=== PATIENT | male | born 1960 | race Caucasian/White ===

== ENCOUNTER 2018-03-04 01:45 | Observation (INO) | payer OTHER ==
[~2018-03-04] VITALS: Ht 179.1 cm; Wt 120.2 kg
[~2018-03-04 01:45] MED LIST: ADIPEX-P37.5 MG PO; ALPRAZOLAM2 M2 PO; CLONIDINE HCL0.2 M1 PO; FISH OIL 1,0001 EAC1 PO; GLUCOPHAGE1000 M1 PO; LIPITOR10 M1 PO; MULTIVITAMINS1 EAC9 PO; NIACIN500 M6 PO; OXYCODONE HCL10 M2 PO; TOPAMAX100 M1 PO; VENLAFAXINE HC150 MG PO; VISINE15 ML OU; VITAMIN B-12250 MCG PO
[2018-03-04 14:00] VITALS: BP 118/70
[2018-03-04 16:00] VITALS: BP 106/60
--- NOTE | 2018-03-04 16:30 | Operative Report ---
Operative/Inv Procedure Report Surgery Date: 03/04/18 Name of Procedure: Robotic repair of recurrent incarcerated ventral hernia with 8 x [address] IPOM mesh and explantation of prior hernia mesh Pre-Operative Diagnosis: Current incarcerated ventral hernia, morbid obesity Post-Operative Diagnosis: Same Estimated Blood Loss: none Surgeon/It Technical Support Specialist: Moris MESA,Wes Mullins PA-C Anesthesia: general endotracheal tube IV Fluids: 1 L crystalloid Implants: VentrioST 8 x 12 cm mesh Drains: None Specimens: None Complications: None Condition: Excellent to PACU extubated Operative Indication: Wayne is 57-year-old gentleman morbidly obese who had a prior mesh repair of umbilical hernia repair 4 years ago [facility] and who presented with a supraumbilical bulge and discomfort. CT showed a small hernia defects and a large subcutaneous pocket couldn't containing fat presents for robotic repair. Mesh explantation is a possibility. Operative/Procedure Note Note: Patient is taken to the operating room placed on the operating table in supine position. Owing an awake timeout he underwent uneventful induction of general endotracheal anesthesia. Bilateral tap blocks were placed. Abdomen was clipped widely of hair then widely with DuraPrep and draped in usual sterile fashion including Ioban. His right arm was on the arm board alongside the body in the left arm was extended out. He had a bath blanket rolled up behind his left flank and the table was flexed. He received IV clindamycin prior to skin incision. He received subcutaneous heparin. Last site was infiltrated in the left subcostal area were transverse incision was made and carried down to the external oblique fascia. The external oblique was split along its fibers as was the internal and transversus abdominis muscles exposing the transversalis fascia. Was then opened carefully to gain entry into the peritoneal cavity finger sweep revealed there were no adhesions. The haley 12 mm aerocele port was placed and pneumoperitoneum achieved area 8mm da Samanta 30 scope was inserted and we could see adhesions in the central area around the hernia. These were omental adhesions only as predicted by the CT scan. We placed two 8 mm working ports laterally on the left side the lowest at the level of the ASIS and the other custodial between both after infiltrating local anesthetic. The [employer] robot was then docked and a straight a bipolar placed in the left hand and a monopolar west in the right. In taking down adhesions in the area of the hernia freeing the omentum from the margin of the defect and pulling out a large volume of omentum from the subcutaneous hernia sac space. This was reduced appreciate a large plug of mesh just inferior to this defect that was adherent to the abdominal wall and covered with other omentum. I freed the omentum from the plug then freed the plug from the anterior abdominal wall leaving aside for later removal area was sutured with multiple Prolene sutures so these were removed. There was a small defect the edge of where the prior hernia mesh was situated. Was difficult to tell if this was a balled up flat sheet of mesh or plug. I closed the midline defects 0V LOC permanent suture starting a centimeters above and completing 3 cm inferior to the defects. Now an 8 x [address] mesh was placed into the abdomen after placing mammary clips around the margin for later CT identification. Mesh was secured circumferentially with 20 absorbable V lock suture in an IPOM fashion centered over the now closed defects. I had taken down peritoneum from superiorly and inferiorly leaving some flaps but despite the patient's size there was very little of a preperitoneal fat stripe and none in the area of the hernia's. I I did clear both edges right and left of the defect areas of any peritoneum. I placed 2-0 Tycron permanent sutures at the 4 Compass points interrupted. I then pulled the residual flaps of peritoneum over each end of the mesh during it with 2-0 Vicryl suture. The explanted mesh was now placed in an extraction bag along with some of the peritoneum I had taken down and removed from the Slade port. Pneumo was reestablished the camera reinserted and we removed the 2 8 mm ports under direct vision then removed the Slade port closing in layers with 0 Vicryl again he would the transversus with the transversalis fascia then the internal oblique and finally the external oblique. Skin was closed with darrell. 4 x 4's and OpSite were placed followed by an abdominal binder. Findings: Balled up mesh plug under umbilical repair with small recurrence there and adjacent 3 x 3 cm defect large-volume omentum into the subcutaneous space. A patient's morbid obesity, need for mesh explantation and the extensive lysis of adhesions and freeing of the omentum added complexity and two hours of extra time to the operation and would qualify for 22 modifier Discharge Disposition: Same Day Admissions
--- NOTE | 2018-03-04 17:14 | PN- General Surgery ---
Subjective Subjective: Patient reports postop pain, improved with oral oxycodone and tylenol. Passing flatus. Denies voiding or ambulating in the schaefer. Using incentive spirometry. Offers no other complaints. Objective Vital Signs and I&Os Vital Signs Date Time Temp Pulse Resp B/P B/P Pulse O2 O2 Flow FiO2 Mean Ox Delivery Rate 03/04 1629 Room Air 03/04 1600 97.8 77 18 106/60 96 Room Air 03/04 1400 98.1 71 18 118/70 95 Room Air Intake & Output 03/04 1600 03/04 0800 03/04 0000 03/03 1600 03/03 0800 03/03 0000 Intake Total 320 Output Total Balance 320 Intake, Oral 320 Patient 265 lb Weight Physical Exam: Gen - resting comfortably nad Cardiac - s1s2, rrr Lungs - ctab Abd - soft, obese, 3 dressings c/d/i, + bs, appropriately tender, no rebound or guarding noted Ext - no edema or calf tenderness Current Medications: Current Medications Sig/Aidan Start time Last Medication Dose Route Stop Time Status Admin Acetaminophen 1,000 MG TID 03/04 1400 AC 03/04 PO 1557 Acetaminophen 1,000 MG .STK-MED ONE 03/04 06 DC IV 03/04 0656 Alprazolam 2 MG BID PRN 03/04 1230 AC PO 03/11 1229 Atorvastatin Calcium 10 MG 1700 03/04 1700 AC 03/04 PO 1705 Clonidine 0.2 MG 0800 03/05 0800 AC PO Dextrose/Sodium 1,000 ML .[id number] 03/04 1345 AC 03/04 Chloride IV 1446 Diazepam 2 MG TID PRN 03/04 1230 AC PO Fentanyl Citrate 250 MCG .STK-MED ONE 03/04 06 DC IM 03/04 0656 Heparin Sodium 5,000 UNIT Q8 03/04 2200 AC (Porcine) SC Hydromorphone HCl 2 MG .STK-MED ONE 03/04 0654 DC IM 03/04 0655 Insulin Aspart 0 TIDAC 03/04 1700 AC 03/04 SC 1705 Ketorolac 30 MG Q6-PRN PRN 03/04 1345 AC Tromethamine IV Midazolam HCl 2 MG .STK-MED ONE 03/04 06 DC IM 03/04 0656 Ondansetron HCl 4 MG Q6P PRN 03/04 1345 AC IV Oxycodone HCl 5 MG Q4-6 PRN PRN 03/04 1345 AC PO Oxycodone HCl 10 MG Q4-6 PRN PRN 03/04 1345 AC 03/04 PO 1444 Tetrahydrozoline HCl 1 GTT DAILY NEEDED PRN 03/04 134 AC OPH Topiramate 100 MG BID 03/04 2100 AC PO Venlafaxine HCl 150 MG 0800 03/05 0800 AC PO Results Last 48 Hours of Labs: Laboratory Tests 03/04 632 Chemistry Sodium (137 - 145 mmol/L) 140 Potassium (3.5 - 5.1 mmol/L) 3.9 Chloride (98 - 107 mmol/L) 102 Carbon Dioxide (22 - 30 mmol/L) 28 Anion Gap (5 - 16) 10 BUN (9 - 20 mg/dL) 18 Creatinine (0.7 - 1.2 mg/dL) 0.9 Estimated GFR (>60 ml/min) > 60 BUN/Creatinine Ratio (7 - 25 %) 20.0 Glucose (65 - 99 mg/dL) 106 H Calcium (8.4 - 10.2 mg/dL) 9.6 Assessment/Plan Assessment/Plan 57 M s/p robotic recurrent incarcerated ventral hernia repair w/ mesh and explantation of prior hernia mesh, recovering well postoperatively Advance to fulls in am Cont IVF Pain prn - oxy, tylenol, valium, toradol Home meds ordered ISS on board DVT pps - alps, hsq, ambulate Monitor postop void Encourage IS Cont observation, anticipate d/c tomorrow Core Measures Venous Thromboembolism VTE Risk Factors Surgery No Mechanical VTE Prophylaxis d/t N/A MechProphylax Ordered No VTE Pharm Prophylaxis d/t NA PharmProphylax ordered
[2018-03-04 18:00] VITALS: BP 104/60
[2018-03-04 20:00] VITALS: BP 110/60
[2018-03-05 05:34] VITALS: BP 134/60
--- NOTE | 2018-03-05 07:52 | PN- General Surgery ---
Subjective Subjective: Patient reports postop pain, which is currently controlled. Tolerating clears without nausea or vomiting. Voiding spontanously and ambulating without difficulty. Passing flatus. Offers no other complaints. Objective Vital Signs and I&Os Vital Signs Date Time Temp Pulse Resp B/P B/P Pulse O2 O2 Flow FiO2 Mean Ox Delivery Rate 03/05 0534 97.9 81 16 134/60 97 Room Air 03/05 0000 Room Air 03/04 2000 97.9 87 18 110/60 94 Room Air 03/04 1800 98.3 79 18 104/60 94 Room Air 03/04 1629 Room Air 03/04 1600 97.8 77 18 106/60 96 Room Air 03/04 1400 98.1 71 18 118/70 95 Room Air Intake & Output 03/05 0000 03/04 1600 03/04 0803/04 0000 03/03 1600 Intake Total 840 1110 320 Output Total 440 Balance 840 670 320 Intake, IV 600 225 Intake, Oral 240 885 320 Number 0 0 Bowel Movements Output, Urine 440 Patient 265 lb Weight Physical Exam: Gen - resting comfortably nad Cardiac - s1s2, rrr Lungs - ctab Abd - soft, obese, 3 dressings c/d/i, + bs, appropriately tender, no rebound or guarding noted Ext - no edema or calf tenderness Current Medications: Current Medications Sig/Aidan Start time Last Medication Dose Route Stop Time Status Admin Acetaminophen 1,000 MG TID 03/04 1400 AC 03/04 PO 2117 Alprazolam 2 MG BID PRN 03/04 1230 AC PO 03/11 1229 Atorvastatin Calcium 10 MG 1700 03/04 1700 AC 03/04 PO 1705 Clonidine 0.2 MG QPM 03/05 2100 AC PO Clonidine 0.2 MG 0800 03/05 0800 DC PO Dextrose/Sodium 1,000 ML .[id number] 03/04 1345 AC 03/05 Chloride IV 0150 Diazepam 2 MG TID PRN 03/04 1230 AC PO Docusate Sodium 100 MG DAILY NEEDED PRN 03/05 0600 AC PO Heparin Sodium 5,000 UNIT Q8 03/04 2200 AC 03/05 (Porcine) SC 0542 Hydromorphone HCl 2 MG .STK-MED ONE 03/04 1307 DC IM 03/04 1308 Hydromorphone HCl 2 MG .STK-MED ONE 03/04 1254 DC IM 03/04 1255 Hydromorphone HCl 2 MG .STK-MED ONE 03/04 1235 DC IM 03/04 1236 Hydromorphone HCl 2 MG .STK-MED ONE 03/04 1224 DC IM 03/04 1225 Insulin Aspart 0 TIDAC 03/04 1700 AC 03/04 SC 1705 Ketorolac 30 MG Q6-PRN PRN 03/04 1345 AC 03/05 Tromethamine IV 0120 Ondansetron HCl 4 MG Q6P PRN 03/04 1345 AC IV Oxycodone HCl 5 MG Q4-6 PRN PRN 03/04 1345 AC PO Oxycodone HCl 10 MG Q4-6 PRN PRN 03/04 1345 AC 03/05 PO 0542 Polyethylene Glycol 17 GM DAILY 03/05 0900 AC PO Senna 187 MG AT BEDTIME 03/05 2100 AC PO Tetrahydrozoline HCl 1 GTT DAILY NEEDED PRN 03/04 134 AC OPH Topiramate 100 MG BID 03/04 2100 AC 03/04 PO 2117 Venlafaxine HCl 150 MG QPM 03/05 2100 AC PO Venlafaxine HCl 150 MG 0800 03/05 0800 DC PO Results Last 48 Hours of Labs: Laboratory Tests 03/04 0632 Chemistry Sodium (137 - 145 mmol/L) 140 Potassium (3.5 - 5.1 mmol/L) 3.9 Chloride (98 - 107 mmol/L) 102 Carbon Dioxide (22 - 30 mmol/L) 28 Anion Gap (5 - 16) 10 BUN (9 - 20 mg/dL) 18 Creatinine (0.7 - 1.2 mg/dL) 0.9 Estimated GFR (>60 ml/min) > 60 BUN/Creatinine Ratio (7 - 25 %) 20.0 Glucose (65 - 99 mg/dL) 106 H Calcium (8.4 - 10.2 mg/dL) 9.6 Assessment/Plan Assessment/Plan 57 M POD 1 s/p robotic recurrent incarcerated ventral hernia repair w/ mesh and explantation of prior hernia mesh, recovering well postoperatively Advance to ada D/c IVF Pain regimen prn Home meds on board ISS on board DVT pps - alps, hsq, ambulate Encourage IS Cont observation, anticipate d/c today D/w Dr. Subramanian Core Measures Venous Thromboembolism VTE Risk Factors Surgery No Mechanical VTE Prophylaxis d/t N/A MechProphylax Ordered No VTE Pharm Prophylaxis d/t NA PharmProphylax ordered
[2018-03-05] MEDS ORDERED: ROXICODONE5 M1 PO (08:14)
[2018-03-05] MEDS ORDERED: VALIUM5 M2 PO (08:14)
[2018-03-05 08:58] LABS: ABSOLUTE BASOPHIL COUNT 0 /CUMM (0.0-0.2); ABSOLUTE EOSINOPHIL COUNT 0.2 /CUMM (0.0-0.7); ABSOLUTE GRANULOCYTE CT 8.6 /CUMM (1.4-6.5); ABSOLUTE MONOCYTE COUNT 0.8 /CUMM (0.10-0.60); BASOPHIL % 0.3 % (0.0-2.0); EOSINOPHIL % 1.6 % (0-5); GRANULOCYTE % 74.2 % (42.2-75.2); HEMATOCRIT 37.8 % (42-52); MEAN CORPUSCULAR HGB 30.2 PG (27.0-31.0); MEAN PLATELET VOLUME 7.7 FL (7.4-10.4); PLATELET COUNT 220 /CUMM (130-400); RBC DISTRIBUTION WIDTH 13.8 % (11.5-14.5); RED BLOOD CELL CT 4.25 /CUMM (4.70-6.10); WHITE BLOOD CELL COUNT 11.6 /CUMM (4.8-10.8)
--- NOTE | 2018-03-05 14:35 | Surg Short-stay <48hrs Dis Sum ---
Visit Information Visit Dates Admission Date: 03/04/18 Discharge Date: 03/05/18 Surgical Short Stay DC Summary Admission Diagnosis: Recurrent incarcerated ventral hernia, morbid obesity Final Diagnosis: Same s/p robotic repair of recurrent incarcerated ventral hernia with mesh and explantation of prior hernia mesh Procedure(s): Robotic repair of recurrent incarcerated ventral hernia with 8 x [address] IPOM mesh and explantation of prior hernia mesh on 03/05/18 Summary/Significant Findings: Patient presented electively for a robotic repair of recurrent incarcerated ventral hernia mesh and explantation of prior hernia mesh with Dr. Subramanian. The procedure was tolerated well and patient was transferred to a general surgical floor. Diet was advanced and tolerated. At the time of hospital discharge, vital signs were stable, patient had return of bowel function and pain was controlled with the use of oral pain medications. Condition at Discharge: Stable Discharge Disposition: home or self care Discharge instructions provided to patient/family: Yes Post discharge follow-up plan: 10-14 days for postop check/staple removal
--- NOTE | 2018-03-05 14:36 | Patient Discharge Instructions ---
Discharge Instructions General Discharge Information You were seen/treated for: ventral hernia You had these procedures: Davinc[employer] Robot Assisted ventral herina repair with mesh Watch for these problems: Increasing pain despite the use of pain medications Increasing redness, warmth, swelling of abdomen Drainage from incision Inability to urinate or move bowels Fever greater than 101.5 Call Surgeon to remove: Talha Do not soak the wound: Yes No bath, but you may shower: Yes Other wound care: Keep wound clean and dry Special Instructions: Follow up with Dr. Subramanian in two weeks for staple removal Diet Continue normal diet: Yes Recommended Diet: Diabetic Activity Full Activity/No Limits: No Activity Self Limited: Yes Pounds, do NOT lift more than: 5 Acute Coronary Syndrome Inclusion Criteria At DC or during hospital stay patient has or had the following: ACS DIAGNOSIS No Discharge Core Measures Meds if any: Prescribed or Continued at Discharge Meds if any: NOT Prescribed or Continued at Discharge Congestive Heart Failure Inclusion Criteria At DC or during hospital stay patient has or had the following: CHF DIAGNOSIS No Discharge Core Measures Meds if any: Prescribed or Continued at Discharge Meds if any: NOT Prescribed or Continued at Discharge Cerebrovascular accident Inclusion Criteria At DC or during hospital stay patient has or had the following: CVA/TIA Diagnosis No Discharge Core Measures Meds if any: Prescribed or Continued at Discharge Meds if any: NOT Prescribed or Continued at Discharge Venous thromboembolism Inclusion Criteria VTE Diagnosis No VTE Type NONE VTE Confirmed by (Test) NONE Discharge Core Measures - Per Current guidelines, there needs to be overlap - treatment for the first 5 days of Warfarin therapy. - If discharged on Warfarin prior to 5 days of - overlap therapy, the patient will need to be - assessed for post discharge needs including - *Post discharge parental anticoagulation - *Warfarin and/or parental anticoagulation education - *Follow up date to check INR post discharge At least 5 days overlap therapy as Inpatient No Meds if any: Prescribed or Continued at Discharge Note: Overlap Therapy is Warfarin and Anticoagulant Meds if any: NOT Prescribed or Continued at Discharge
[2018-03-05 14:48] VITALS: BP 130/70
== END 2018-03-05 16:35 ==
LOC: STS 01:45 → PACUH 12:09 → ENRESERV 12:56 → ENTRNSPT 13:14 → EDTRNSPT 13:15 → EDTRNSPTSTS 13:17 → 2NA 13:29 → CMPTRNSPT 13:37 → ENPENDDIS 03-05 14:42 → ENTRNSPT 03-05 16:19 → EDTRNSPT 03-05 16:22 → EDTRNSPTSTS 03-05 16:22 → CMPTRNSPT 03-05 16:33 → 2NA 03-05 16:35
PROVIDERS: Physician Assistant Surgical
DX: K43.0 Incisional hernia with obstruction, without gangrene (principal); G89.18 Other acute postprocedural pain; E66.01 Morbid (severe) obesity due to excess calories; E11.9 Type 2 diabetes mellitus without complications; Z79.84 Long term (current) use of oral hypoglycemic drugs; G47.30 Sleep apnea, unspecified; E78.2 Mixed hyperlipidemia; F41.8 Other specified anxiety disorders
CPT/HCPCS: 1255; 36415; 36592; 82436; 88304; 96372; 96374; C1781; C9290; C9399; G0378; J0131; J1644; J1885; J2405; J3490; J7042